=== PATIENT | female | born 1950 | race Caucasian/White ===

== ENCOUNTER 2019-03-31 16:09 | Outpatient (CLI) | payer MEDICARE, OTHER ==
--- NOTE | 2019-03-31 17:17 | RAD ---
Exam:2 views right shoulder HISTORY: Pain with range of motion. COMPARISON: None FINDINGS: Glenohumeral joint space appears to be preserved. No definite fracture or dislocation. Limi pauline evaluation as only 2 views abdomen provided. IMPRESSION: No fracture or dislocation.
--- NOTE | 2019-04-01 08:40 | MRI ---
MRI OF THE RIGHT SHOULDER WITHOUT CONTRAST: INDICATION: Right shoulder pain with loss of range of motion. COMPARISON: Right shoulder dated 03/31/2019. FINDINGS: There is a partial thickness bursal surface tear involving 50% of the tendon thickness of the suprasp inatus at the footprint. The tear involves the superior, mid, and posterior aspects of the supraspin atus and measures approximately 0.5 x 1.4 cm. There is mild tendinosis of the supraspinatus and infr aspinatus. There is tendinosis of the intraarticular biceps tendon. There is mild fluid in the suba cromial/subbursal space. There is linear abnormal signal involving the superior glenoid labrum with some extension into the anchor on image 10 of series 6 suspicious for a SLAP tear. No paralabral cys t is evident. The tear extends from approximately the 1-2 o'clock position through the 10 o'clock po sition. Glenohumeral articular surface is normal appearing. No muscular atrophy is evident. AC arabella nt is within normal limits. The biceps tendon is located in the bicipital groove. No enlarged lymph nodes are evident. IMPRESSION: 1. Bursal surface partial thickness tear of the supraspinatus at the footprint with a mild amount of fluid in the subacromial subdeltoid space. 2. Superior labrum anterior to posterior tear with some tear extension into the biceps anchor. POS: BH
== END 2019-03-31 16:10 | disposition home or self-care (01) ==
LOC: SCSMRI 16:09
PROVIDERS: ATTEND Family Medicine
DX: M25.511 Pain in right shoulder (principal); M75.111 Incomplete rotator cuff tear or rupture of right shoulder, not specified as traumatic; S43.401A Unspecified sprain of right shoulder joint, initial encounter

== ENCOUNTER 2019-03-31 17:22 | Emergency (ER) | payer MEDICARE, OTHER | END 2019-03-31 18:05 | disposition home or self-care (01) | LOC: SCSER 17:22 | DX: R59.0 Localized enlarged lymph nodes (principal); I10 Essential (primary) hypertension; Z86.73 Personal history of transient ischemic attack (TIA), and cerebral infarction without residual deficits | CPT/HCPCS: 99281 ==

== ENCOUNTER 2019-04-04 15:27 | Outpatient (CLI) | payer MEDICARE, OTHER ==
[~2019-04-04 15:27] MED LIST: Iopamidol 370 76% 100 ML VIAL ONE
--- NOTE | 2019-04-04 16:27 | CT ---
Exam: Postcontrast soft tissue neck CT HISTORY: Lump in the right of the neck, times many months. Sialadenitis. Comparison: None FINDINGS: Visualized brain parenchyma is unremarkable. Bilateral ocular lenses are appropriately located. Both globes are intact. Retrobulbar fat is preserv ed. Symmetric attenuation of the optic nerves and ocular rectus muscles. Adequate aeration of the paranasal sinuses and mastoid air cells Limited evaluation the oral cavity due to dental amalgam artifact. Midline fatty raphae of the tongue is preserved. Epiglottis has a normal caliber. Preepiglottic fat is preserved. The hypopharynx, supraglottic larynx, glottic and subglottic larynx are unremarkable Symmetric attenuation of the parotid and submandibular glands. No evidence of sialadenitis. No eviden ce of a sialolith. Symmetric attenuation of cleidomastoid muscles Scattered nonspecific, nonenlarged bilateral soft tissue neck lymph nodes Thyroid gland is diminutive and unremarkable Cervical spine intervertebral body height is maintained. No fracture or malalignment. No significant central canal stenosis or significant foraminal narrowing Upper mediastinum is unremarkable. Linear opacities throughout the visualized lung parenchyma may rep resent chronic change At the level of palpable marker in the right neck, no mass, adenopathy, no cystic or solid lesions. T here is a nonenlarged right level 1 lymph node measuring 0.9 x 0.4 cm. IMPRESSION: 1. Unremarkable postcontrast soft tissue neck CT. No significant mass or lymphadenopathy level of pal pable marker. There is a nonenlarged right level 1 lymph node, the level of palpable marker. 2. No evidence of sialadenitis or sialolith. Transcribed Date/Time: 04/04/2019 5:07 PM
[2019-04-05 18:37] LABS: ANA Symphony (Qualitative) Equivocal: See Note (Negative); ANA Symphony (Quantitative) 0.8 Ratio (< 0.7 Negative); CCP IgG Antibody 0.6 EliAU/mL (<7 Negative); EliA RAS New Method **** NEW METHOD ****; Rheumatoid Factor IgA Antibody 2.9 IU/mL (<14 Negative); Rheumatoid Factor IgM Antibody 0.6 IU/mL (<3.5 Negative); SSA/Ro IgG Antibody Less than 0.3 EliAU/mL (<7 Negative); SSB/La IgG Antibody Less than 0.3 EliAU/mL (<7 Negative); dsDNA IgG Antibody 7.9 IU/mL (<10 Negative)
== END 2019-04-04 15:28 | disposition home or self-care (01) ==
LOC: SCSCT 15:27
PROVIDERS: ATTEND Student in an Organized Health Care Education/Training Program
DX: K11.20 Sialoadenitis, unspecified (principal); M35.00 Sjogren syndrome, unspecified
CPT/HCPCS: 36415; 70491; 83520; 86038; 86200; 86225; 86235; Q9967

== ENCOUNTER 2019-05-09 15:21 | Emergency (ER) | payer MEDICARE, OTHER ==
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
== END 2019-05-09 17:11 | disposition home or self-care (01) ==
LOC: SCSER 15:21
DX: S16.1XXA Strain of muscle, fascia and tendon at neck level, initial encounter (principal); S29.012A Strain of muscle and tendon of back wall of thorax, initial encounter; S39.012A Strain of muscle, fascia and tendon of lower back, initial encounter; I10 Essential (primary) hypertension; Z86.73 Personal history of transient ischemic attack (TIA), and cerebral infarction without residual deficits; V43.52XA Car driver injured in collision with other type car in traffic accident, initial encounter
CPT/HCPCS: 72125; 72128; 72131

== ENCOUNTER 2020-03-06 10:21 | Outpatient (CLI) | payer MEDICARE, OTHER ==
--- NOTE | 2020-03-06 11:05 | MRI ---
MRI Lower Ext Jt Lt WO Con History: Medial knee pain Comparison: None. Findings: Medial meniscus: There is subtle peripheral vertical longitudinal tear body and posterior h orn medial meniscus involving the intermediate zone without fiber displacement. Lateral meniscus: Intact The ACL, PCL, MCL and LCL are all intact. Extensor mechanism: Quadriceps tendon, patella and patellar tendon are intact. Cartilage: Patellofemoral compartment: Cartilage denuding of the medial patellar facet with subcortical cystic c hange. This also does involve the interpolar region of the patellar apex. Medial compartment: 20-30% cartilage fraying throughout the medial compartment without full-thickness defect. Frontal compartment: Intact and normal for age. Bones: No fracture. No malalignment. No contusion. Small patellofemoral compartment osteophytes. Muscles: Muscle signal and bulk is normal. Impression: 1. Nondisplaced subtle vertical longitudinal tear at the intermediate zone body and posterior horn me dial meniscus without significant displacement. 2. Mild intrameniscal degeneration anterior cruciate ligament. 3. 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
== END 2020-03-06 10:22 | disposition home or self-care (01) ==
LOC: BICMRI 10:21
PROVIDERS: ATTEND Orthopaedic Surgery
DX: M23.92 Unspecified internal derangement of left knee (principal); S83.242A Other tear of medial meniscus, current injury, left knee, initial encounter; M22.42 Chondromalacia patellae, left knee

== ENCOUNTER 2020-08-30 07:44 | Outpatient (CLI) | payer MEDICARE, OTHER ==
[2020-08-30 14:18] LABS: Anion Gap 12 mmol/L (10-20); BUN (Urea Nitrogen) 16 mg/dL (9.8-20.1); Calc. Creatinine Clearance 0 mL/min (70-130); Calcium 9.8 mg/dL (7.8-10.44); Carbon Dioxide 26 mmol/L (23-31); Chloride 104 mmol/L (98-107); Glucose 87 mg/dL (80-115); Potassium 4.4 mmol/L (3.5-5.1); Sodium 138 mmol/L (136-145)
[2020-08-31 04:13] LABS: SARS-CoV-2 PCR by NAA Not Detected (NotDetected)
--- NOTE | 2020-09-02 10:53 | EKG ---
Test Reason : PREOP Blood Pressure : / mmHG Vent. Rate : 080 BPM Atrial Rate : 080 BPM P-R Int : 160 ms QRS Dur : 074 ms QT Int : 366 ms P-R-T Axes : 054 037 050 degrees QTc Int : 422 ms Normal sinus rhythm Normal ECG No previous ECGs available Confirmed by MAGGIE ORTIZ ([id number]) on 09/02/2020 10:52:41 AM Referred By: RAFAEL Confirmed By:MAGGIE ORTIZ
== END 2020-08-30 07:45 | disposition home or self-care (01) ==
LOC: LABBT 07:44
PROVIDERS: ATTEND Orthopaedic Surgery
DX: Z01.818 Encounter for other preprocedural examination (principal); Z20.822 Contact with and (suspected) exposure to COVID-19; S83.242A Other tear of medial meniscus, current injury, left knee, initial encounter
CPT/HCPCS: 80048; 93005; U0003; U0005; 87635; 93010

== ENCOUNTER 2020-09-02 05:45 | Day surgery (SDC) | payer MEDICARE, OTHER ==
[2020-08-30 09:51] VITALS: BMI 34.5
[2020-09-02] MEDS ORDERED: PROPOFOL 20 ML ONE (06:58)
[2020-09-02] MEDS ORDERED: Fentanyl 100 MCG/2 ML VIAL ONE (07:08)
--- NOTE | 2020-09-02 08:41 | OP ---
DATE OF PROCEDURE: 09/02/2020 PREOPERATIVE DIAGNOSES: Degenerative joint disease, patellofemoral joint and medial meniscus tear. POSTOPERATIVE DIAGNOSES: Degenerative joint disease, patellofemoral joint and medial meniscus tear, with some grade 3 chondromalacia of medial femoral condyle, intact lateral compartment. ANESTHESIA: General. BLOOD LOSS: Minimal. SPECIMEN: None. DRAINS: None. COMPLICATIONS: None. DESCRIPTION OF PROCEDURE: Left leg was prepped and draped in the usual sterile fashion. Scope was placed in the lateral portal. Probe was placed in the medial portal. Findings were as above. I debrided unstable articular cartilage flap tears on the articular cartilage of the patella, particularly medial facet of the patella. She had a very complex medial meniscus tear. I took out most of the medial meniscus using basket forceps and a shaver. I smoothed the rim of the meniscus with a 4.0 shaver. Irrigation was performed. I inspected the rest of the knee. The knee was drained. Sterile dressings applied. Job ID: [id number]
[2020-09-02] MEDS ORDERED: HYDROcodone/Acetaminophen 5/325 mg Tablet ONE (08:50)
[2020-09-02] MEDS ORDERED: Lidocaine 2% w/Epinephrine 1:200K 20 ML VIAL ONE (10:44)
[2020-09-02] MEDS ORDERED: Dexamethasone 20 MG/5 ML VIAL ONE (10:44)
[2020-09-02] MEDS ORDERED: PROPOFOL 200 MG/20 ML VIAL ONE (10:44)
[2020-09-02] MEDS ORDERED: Bupivacaine HCl 0.5%/Epinephrine 1:200,000/PF 30 ml Vial ONE (10:44)
[2020-09-02] MEDS ORDERED: Ketorolac Tromethamine 30 MG/ML VIAL ONE (10:44)
[2020-09-02] MEDS ORDERED: Ondansetron PF 4 MG/2 ML Vial ONE (10:44)
[2020-09-02] MEDS ORDERED: PHENYLEPHRINE-NS 100 MCG/ML 10 ML SYRINGE ONE (10:44)
== END 2020-09-02 10:03 | disposition home or self-care (01) ==
LOC: SDC 05:45
PROVIDERS: ATTEND Orthopaedic Surgery
PROC: 0SBD4ZZ Excision of Left Knee Joint, Percutaneous Endoscopic Approach (ICD-10-PCS; principal; 2020-09-02)
DX: M23.304 Other meniscus derangements, unspecified medial meniscus, left knee (principal); M94.262 Chondromalacia, left knee; E03.9 Hypothyroidism, unspecified; G89.29 Other chronic pain; M54.9 Dorsalgia, unspecified; I10 Essential (primary) hypertension; Z79.82 Long term (current) use of aspirin; Z79.899 Other long term (current) drug therapy
CPT/HCPCS: J0690; J1100; J1885; J2405; J2704; J3010

== ENCOUNTER 2021-05-27 08:00 | Outpatient (CLI) | payer MEDICARE, OTHER | END 2021-05-27 08:01 | disposition home or self-care (01) | LOC: BICULT 08:00 | PROVIDERS: ATTEND Internal Medicine Gastroenterology | DX: R10.9 Unspecified abdominal pain (principal); K80.20 Calculus of gallbladder without cholecystitis without obstruction; N28.1 Cyst of kidney, acquired | CPT/HCPCS: 76700 ==

== ENCOUNTER 2021-08-21 14:08 | Outpatient (CLI) | payer MEDICARE, OTHER | END 2021-08-21 14:09 | disposition home or self-care (01) | LOC: MRI 14:08 | PROVIDERS: ATTEND Anesthesiology Pain Medicine | DX: M51.16 Intervertebral disc disorders with radiculopathy, lumbar region (principal); M51.27 Other intervertebral disc displacement, lumbosacral region | CPT/HCPCS: 72148 ==

== ENCOUNTER 2022-09-25 15:11 | Outpatient (CLI) | payer MEDICARE, OTHER | END 2022-09-25 15:12 | disposition home or self-care (01) | LOC: TBSIIMAG 15:11 | PROVIDERS: ATTEND Anesthesiology Pain Medicine | DX: M54.16 Radiculopathy, lumbar region (principal); M48.061 Spinal stenosis, lumbar region without neurogenic claudication; M48.07 Spinal stenosis, lumbosacral region | CPT/HCPCS: 72148 ==

== ENCOUNTER 2024-04-27 15:31 | Outpatient (CLI) | payer MEDICARE, OTHER | END 2024-04-27 15:32 | disposition home or self-care (01) | LOC: BICCT 15:31 | PROVIDERS: ATTEND Physician Assistant | DX: M47.816 Spondylosis without myelopathy or radiculopathy, lumbar region (principal); Z98.1 Arthrodesis status | CPT/HCPCS: 72131 ==